=== PATIENT | female | born 1940 | race Hispanic/Latino ===

== ENCOUNTER → 2018-05-31 | Outpatient (CLI) | payer OTHER | END | disposition home or self-care (01) | LOC: RAH 13:21 | PROVIDERS: ATTEND Internal Medicine Cardiovascular Disease | DX: E04.1 Nontoxic single thyroid nodule (principal) | CPT/HCPCS: 76536 ==

== ENCOUNTER → 2024-10-10 | Outpatient (CLI) | payer MEDICARE ==
[2024-10-10] MEDS: REGADENOSON 0.4 MG/5 ML PF SYG IVP ONE (09:36)
--- NOTE | 2024-10-10 13:28 | HMCSR ---
APPROVED REPORT Height: 5 ft 3in Weight: 182 lbs TEST INDICATIONS CAD The imaging protocol used to acquire images was Rest Tc-99m/stress Tc-99m 1 day Consent: The procedure was explained and understood by the patient. Informerd consent was witnessed Pérez Garzon RN First, low dose rest was performed then high dose stress. RESTING DATA: The resting ekg shows: NSR Rest SPECT myocardial perfusion imaging was performed in supine position minutes following the intra venous injection of 11 mCi of Tc-99 Sestamibi. Time of rest injection: 09:18: Date: 10/10/2024 PHARMACOLOGIC STRESS: Pharmacologic stress test was performed by injecting regadenoson 0.4 mg IV push followed by the intra venous injection of 29 mCi of Tc-99 Sestamibi. Time of stress injection: 11:05: Date: 10/10/2024 Heart Rate at time of stress injection: 89 bpm. Gated Stress SPECT was performed 60 minutes after stress injection. The images were gated to evaluate regional wall motion and calculate left ventricular ejection fracti on. STRESS DETAILS Reason for Termination: Infusion complete Stress Symptoms: No chest pain or symptoms Max HR Achieved: 107 bpm % of APMHR Achieved: 92 Max Blood Pressure: 153/84 mmHg Stress ECG: Tachycardia Arrhythmia: No. ST Change: No. Study quality was poor. Artifact: motion artifact, diaphragmatic artifact LEFT VENTRICLE Size: The left ventricular size is small. Systolic Function:The left ventricular systolic function is normal. Wall Motion: No regional wall motion abnormalities noted. The left ventricular ejection fraction was calculated to be >70%.TID = . LV PERFUSION There is a large size, moderate intensity, fully reversible perfusion defects seen in the basal/mid/a pical anterior and anterolateral pederson. No obvious TID. RV Size/Shape The right ventricle was not well visualized. IMPRESSION Stress ECG Summary: Nondiagnostic Conclusion Abnormal Lexiscan stress test. There is a large size, moderate intensity, fully reversible perfusion defects seen in the basal/mid/a pical anterior and anterolateral pederson. No obvious TID. The left ventricular size is small. No regional wall motion abnormalities noted. The left ventricular systolic function is normal. Post stress LVEF was calculated to be > 70%. Stress ECG Summary: Nondiagnostic Study indicates a moderate to high-risk for cardiovascular events. Clinical correlation is advised.
== END | disposition home or self-care (01) ==
LOC: RAH 08:49
PROVIDERS: ATTEND Internal Medicine Cardiovascular Disease
DX: I25.118 Atherosclerotic heart disease of native coronary artery with other forms of angina pectoris (principal); R00.0 Tachycardia, unspecified
CPT/HCPCS: 78452; 93017; J2785; A9500 ×2

== ENCOUNTER 2024-11-24 10:48 | Day surgery (SDC) | payer MEDICARE ==
[2024-11-21 10:53] LABS: IMMATURE GRANULOCYTE ABSOLUTE 0.03 K/uL (0-1); NUCLEATED RED BLOOD CELLS 0.0 % (0.0-0.19); PLATELET COUNT (AUTO) 338 K/uL (130-400); RED BLOOD CELL COUNT(AUTO) 4.74 MIL/uL (4.00-5.50); RED CELL DISTRIBUTION WIDTH 17.3 % (11.0-15.5); WHITE BLOOD COUNT (AUTO) 9.6 K/uL (4.8-10.8)
[2024-11-21 11:02] LABS: CREATININE 0.9 mg/dL (0.5-1.0); GLOMERULAR FILTR. RATE CALC 63.0 mL/min (>90); GLUCOSE,RANDOM 113.0 mg/dL (70-105); SODIUM SERUM 140.0 mmol/L (136-145); UREA NITROGEN, BLOOD 9.0 mg/dL (7-18)
[2024-11-21 11:03] LABS: INR 1.01 (0.85-1.15)
[2024-11-21 11:08] VITALS: BP 141/67; PULSE 104; RESP 16; TEMP 97.3
--- NOTE | 2024-11-21 11:15 | EKG ---
[facility] Test Date: 2024-11-21 Test Time: 10:41:52 Pat Name: ASIM BOBBY Department: [facility] Room: Gender: F Research Professional: [id number] : 1940 Requested By: ETTA DIAZ Order Number: [id number] Reading MD: Wanda Singh Measurements Intervals [place] Rate: 98 P: 73 GA: 141 QRS: 43 QRSD: 75 T: 30 QT: 346 QTc: 442 Interpretive Statements Sinus rhythm No previous ECG available for comparison Electronically Signed On 11-21-2024 14:34:38 CDT by Wanda Singh Please click the below link to view image of tracing.
--- NOTE | 2024-11-21 14:36 | HMCIMG ---
CHEST 1VW REASON: PRE OP COMPARISON: None. FINDINGS: Single view of the chest was obtained. Lungs are clear. Heart size is normal. There is early uncoiling atherosclerotic change of thoracic aorta. There is no pulmonary vascular congestion. Mediastinum appears normal. 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 IMPRESSION: 1. No acute cardiopulmonary process
[~2024-11-24] VITALS: Ht 160 cm; Wt 82.2 kg
[2024-11-24] VITALS (9 sets, daily range): BP systolic 114–167; BP diastolic 62–81; PULSE 80–104; RESP 12–17; TEMP 96.9–97.2
[~2024-11-24 10:48] MED LIST: ACET-2521 PO; ASPI-1443 PO; BUSP15TA3 PO; LEVO100C5 PO; LOSA50TA64 PO; METO25TA6 PO; OMEG100014 PO; ROSU5TAB51 PO
[2024-11-24] MEDS: 0.9%NACL 1000ML 1,000 ML IV SCH (11:39)
[2024-11-24] MEDS ORDERED: IOHEXOL 350 MG/ML 100ML INFUS..BTL IV ONE (12:13)
[2024-11-24] MEDS ORDERED: NITROGLYCERIN 50MG VIAL ONE (12:13)
[2024-11-24] MEDS ORDERED: LIDOCAINE HCL 400MG/20ML VIAL ONE (12:13)
[2024-11-24] MEDS ORDERED: HEParin-NS 1,000 UNIT/500 ML 1,000 ML IV ONE (12:13)
[2024-11-24] MEDS ORDERED: MIDAZOLAM HCL 1 MG/ML 2ML VIAL ONE (12:43)
[2024-11-24] MEDS ORDERED: DEXTROSE 50%-WATER 50 ML DISP.SYRIN IV PRN (13:30)
[2024-11-24] MEDS ORDERED: GLUCAGON 1MG KIT 1 MG ML IM PRN (13:30)
[2024-11-24] MEDS ORDERED: 0.9%NACL 1000ML 1,000 ML IV SCH (13:30)
--- NOTE | 2024-11-24 13:44 | PRN ---
Left Heart Cath-[facility] PROCEDURE: 1. Right common femoral arterial sheath placement. 2. Selective coronary angiogram. 3. Left heart catheterization. 4. Left ventriculogram. 5. Conscious sedation 6. Omni wire assessment of ostial LAD and proximal mid LAD stent INDICATIONS: Abnormal coronary CT angiogram Preoperative clearance prior to total knee replacement Aortic stenosis via echocardiography Prior history of LAD stent DESCRIPTION OF PROCEDURE: The patient was brought to the catheterization suite and prepped and draped in sterile fashion. An IV was started, if not already in place and both groins we re exposed for arterial access. 1% lidocaine was used for local anesthesia and then a micropuncture kit was used to gain access and once free-flowing blood was seen, modified Seldinger technique was utilized to place a 6 [place] sheath into the right common femoral artery. Next, preformed JL4 and JR4 Catheters were then used to selectively engage the [place] coronary vessels and multiple hand contrast injections were performed in different views to define the coronary anatomy. Next a 6 [place] angled pigtail was then used across aortic valve pressure measurements were obtained and then a left ventriculogram was performed in the 30 HAYNES position. Next pullback method was performed. Secondary to questionable lesions involving the ostial LAD in addition to I nStent restenosis of the proximal mid LAD stent it was felt further assessment should be performed. Therefore I placed a 6 [place] Q3.5 guide catheter into the left coronary system and then zeroed out the Omni wire and then made assessments of the ostial LAD lesion which appeared anywhere from 40-70 year% and then made an assessment of the proximal mid stent that had been placed previously secondary to InStent restenosis. Those values involving the ostial LAD Omni wire measurement were 0.97 and 0.99. The values involving the proximal mid LAD stent were measured at 0.91 and 0.93. These values suggest non hemodynamically significant lesions which can be treated medically. FINDINGS: The left main artery bifurcates in the LAD and left circumflex and has diffuse stenosis of the proximally 20% with no dampening with catheter engagement or ventricularization. Patent prox mid LAD stent with a mild InStent restenosis with the Omni wire pressure measurements at 0.93 and 0.91 40% to 50% stenosis of ostial LAD with the Omni wire pressure measurements at 0.97 and 0.99 The left circumflex artery is a nondominant system and has no significant stenosis. The right coronary artery is a dominant vessel giving rise to the PDA and RPL. No significant stenosis is noted in this vessel. Ejection fraction is greater than 65% Gradient across aortic valve was only 10 mm of mercury There was no significant mitral regurgitation Wall motion appeared to be normal ETTA LOUIS MD Nov 24, 2024 13:44
--- NOTE | 2024-11-24 14:25 | NUR ---
Right Femoral site without sign of bleeding bruising or hematoma. Pedal pulse intact to YAKOV's. Patient joyful with Family at bedside. VS remain stable. Tolerated water and HH diet ordered. Educated Patient and Family on importance of keeping right leg straight and POC until discharge. Reported off in full to oncoming Nurse, Susana.
== END 2024-11-24 16:45 | disposition home or self-care (01) ==
LOC: DAH 10:48
PROVIDERS: ATTEND Internal Medicine Cardiovascular Disease
DX: R94.39 Abnormal result of other cardiovascular function study (principal); I25.118 Atherosclerotic heart disease of native coronary artery with other forms of angina pectoris; R06.02 Shortness of breath; R07.9 Chest pain, unspecified; T82.855A Stenosis of coronary artery stent, initial encounter; I12.9 Hypertensive chronic kidney disease with stage 1 through stage 4 chronic kidney disease, or unspecified chronic kidney disease; N18.4 Chronic kidney disease, stage 4 (severe); E78.5 Hyperlipidemia, unspecified; K21.9 Gastro-esophageal reflux disease without esophagitis; E03.9 Hypothyroidism, unspecified; I35.0 Nonrheumatic aortic (valve) stenosis; E66.9 Obesity, unspecified; Z68.32 Body mass index [BMI] 32.0-32.9, adult; I49.8 Other specified cardiac arrhythmias; Z90.49 Acquired absence of other specified parts of digestive tract; Z79.82 Long term (current) use of aspirin; Z79.890 Hormone replacement therapy; Z79.899 Other long term (current) drug therapy; Z98.890 Other specified postprocedural states; Y71.3 Surgical instruments, materials and cardiovascular devices (including sutures) associated with adverse incidents
CPT/HCPCS: 80048; 83880; 85025; 85610; 85730; 36415; 71045; 93005; 93458; 93571; 99156; 99157 ×2; 85347; C1887; C1894 ×2; C1760; C1769; Q9965; J3010; J3490 ×2; J1644 ×2; J2250; Q9967; A4215; A4222; A4221; A4663; A4216; A4606; A4223 ×3; 96360; 96361